=== PATIENT | male | born 1950 | race Caucasian/White ===

== ENCOUNTER 2022-04-06 06:42 | Emergency (ER) | payer MEDICARE, OTHER ==
[2022-04-06 07:08] VITALS: BP 139/78; PULSE 79
[2022-04-06] MEDS ORDERED: Ketorolac 30 MG/ML SDV IM ONE (07:36)
== END 2022-04-06 09:10 | disposition home or self-care (01) ==
LOC: JP.ED 06:42
DX: M25.561 Pain in right knee (principal); I10 Essential (primary) hypertension
CPT/HCPCS: 36415; 73562; 84550; 86618; 96372; 99283; J1885